=== PATIENT | female | born 1955 | race Caucasian/White ===

== ENCOUNTER 2022-10-13 14:09 | Observation (INO) ==
--- NOTE | 2022-10-13 14:27 | DR.FBACK ---
HPI Time Seen Time Seen by Provider: 10/13/22 14:22 PCP Primary Care Physician: DR BENAVIDES Complaint Chief Complaint Doctor Comments: 67 y/o female brought in for evaluation. Had sudden onset of bilateral leg numbness, while sitting. Able to get up and get back into house, slumped back against wall, having bilateral leg weakness/numbness. Feeling lower abdominal pain, radiating to legs, abdomen. Feels like fluid running down legs. Nothing makes worse. feells better pressing hand against low back. No bowel/bladder incontinence. Abdomen with bloating, distension since onset. No fever. Has been having abdominal pain recently, saw Dr Chi. Chief Complaint:: PT STATES THAT A LITTLE OVER TWO HOURS AGO SHE HAD A SUDDEN ONSET OF NUMBNESS WITH TINGLING INTO THE BILATERAL LOWER EXTREMITIES. PT STATES THAT NOW THE NUMBNESS IS PROGRESSING UP TO MIDWAY UP HER SPINE. PT APPEARS VERY ANXIOUS AT TIME OF TRIAGE COVID-19 Coronavirus risk:travel/contact w/high risk person: No Has patient experienced Coronavirus symptoms: No Reviewed Nurses Notes Review: Yes Source History Provided: Patient Mode of Arrival Mode of Arrival: Ambulatory Timing Onset of Chief Complaint: 10/13/22 PMH PMH Past Medical History: Yes Past Medical History: Anxiety, Diabetes, Dyslipidemia, Hypertension and Hypothyroidism Past Medical History Comment: TIA, INSOMNIA Past Surgical History: Yes Surgical History: Appendectomy, , Cholecystectomy and Ortho Surgery Past Surgical History Comment: L5-S1 SURGERY, BLADDER SLING, XYPHOID PROCESS REMOVED Family History History of Family Medical Conditions: Yes Family Medical History: Diabetes Mellitus and Coronary Artery Disease Social History Does patient currently use any type of tobacco product: Yes Have you used tobacco products in the last 12 months: Yes Type of Tobacco Use: Cigarettes Does any household member use tobacco: No Alcohol Use: None Do you use any recreational Drugs:: No Lives With: Alone Lives Where: Home Travel Risk Coronavirus risk:travel/contact w/high risk person: No Has patient experienced Coronavirus symptoms: No Infectious screening In the last 2 months have you had wt loss of >10#?: NO Have you had fever, night sweats or hemotysis?: No Have you traveled outside the country in the last 6 months?: No Isolation: Standard ROS Review of Systems Constitutional: Weakness Eyes: No Symptoms Reported ENTM: No Symptoms Reported Respiratoy: No Symptoms Reported Cardiovascular: No Symptoms Reported Gastrointestinal/Abdominal: Abdominal Pain Genitourinary: No Symptoms Reported Neurological: Paresthesia and Weakness Musculoskeletal: Back Pain Integumentary: No Symptoms Reported Hematologic/Lymphatic: No Symptoms Reported All Other Systems: Reviewed and Negative PE Vitals Vital Signs: Temp Pulse Resp BP Pulse Ox O2 Del Method 10/13/22 19:30 141/70 10/13/22 19:30 141/70 10/13/22 19:25 82 L 10/13/22 19:09 55 L 82 L 10/13/22 19:00 128/68 10/13/22 18:55 84 93 L 10/13/22 18:46 90 89 L 10/13/22 18:31 88 96 10/13/22 18:31 160/75 10/13/22 18:30 90 96 10/13/22 18:15 80 92 L 10/13/22 17:22 20 10/13/22 18:00 82 90 L 10/13/22 18:00 122/82 10/13/22 17:45 82 91 L 10/13/22 17:30 80 95 10/13/22 17:30 136/68 10/13/22 17:15 87 93 L 10/13/22 17:00 80 93 L 10/13/22 17:00 131/64 10/13/22 16:45 86 92 L 10/13/22 16:30 83 93 L 10/13/22 16:30 141/67 10/13/22 16:15 85 94 L 10/13/22 16:00 85 95 10/13/22 16:00 147/72 10/13/22 15:48 89 94 L 10/13/22 15:48 155/75 10/13/22 15:47 90 92 L 10/13/22 16:52 20 10/13/22 15:35 20 10/13/22 15:15 85 91 L 10/13/22 15:09 87 90 L 10/13/22 15:09 181/74 10/13/22 15:00 83 95 10/13/22 15:05 18 10/13/22 14:44 92 H 97 10/13/22 14:44 141/83 10/13/22 14:42 91 H 95 10/13/22 14:19 98.0 F 97 H 24 181/88 96 Room Air General General Appearance: Alert, Anxious and In Distress Eyes Eye exam: PERRL and EOMI ENT ENT Exam: Mucous Membranes Moist Respiratory Respiratory Exam: Normal Lung Sounds Bilat; negative Accessory Muscle Use or Respiratory Distress Cardiovascular Cardiovascular Exam: Regular Rate, Normal Rhythm and Normal Heart Sounds Abdominal Exam Abdominal Exam: Soft and Distention; negative Tenderness Extremities Extremities Exam: negative Edema or Other (decreased ability to raise either leg, no downward heel pressure with raising opposite leg. ) Neurological Neurological Exam: Alert, Oriented X3, CN II-XII Intact and Other (bilateral weakness of lower exts, but able to move with her hand on her back.) Skin Skin Exam: Warm and Dry COURSE Treatment Treatment: 67 y/o female, sudden onset of bilateral leg numbness/weakness. W/u initiated. + good distal pulses of bilateral feet. Not c/w acute CVA. Doubt major circulatory problem. Pt givne IV ativan, as she is very anxious, followed by IV analgesia. Brief help with IV dilaudid, 1 mg, repeat dose given. Labs overall acceptable. CTA of the abd/pelvis done, no obvious acute issues. Pt does appear to have lumbar disc disease on CT, with several bulging discs, no obvious cord compromise. Pt able to move her legs better, legs too weak to stand. Pt given IVsteroids. Will reommend observation admission, as pt cannot be cared for at home at this time. May need MRI if symptoms not improving. Discussed with covering MD, Dr Archuleta. ROR Labs Reviewed Result Diagrams: 10/14/22 05:32 10/14/22 05:32 Laboratory: WBC 11.1 X10^3/uL (3.6-10.0) H 10/13/22 14:40 RBC 5.24 X10^6/uL (3.5-5.4) 10/13/22 14:40 Hgb 14.7 g/dL (12.0-16.0) 10/13/22 14:40 Hct 43.0 % (36.0-47.0) 10/13/22 14:40 MCV 82.2 fL (80.0-100.0) 10/13/22 14:40 MCH 28.1 pg (27.0-34.0) 10/13/22 14:40 MCHC 34.1 g/dL (33.0-35.0) 10/13/22 14:40 RDW 13.3 % (11.6-16.5) 10/13/22 14:40 Plt Count 295 X10^3/uL (150.0-450.0) 10/13/22 14:40 MPV 8.9 fL (7.4-11.0) 10/13/22 14:40 Neut % (Auto) 67.0 % (42.0-75.0) 10/13/22 14:40 Lymph % (Auto) 24.0 % (21.0-51.0) 10/13/22 14:40 Emmons % (Auto) 6.9 % (0.0-13.0) 10/13/22 14:40 Eos % (Auto) 0.7 % (0.9-2.9) L 10/13/22 14:40 Baso % (Auto) 1.4 % (0.2-1.0) H 10/13/22 14:40 Neut # (Auto) 7.4 x10^3/uL (2.2-4.8) H 10/13/22 14:40 Lymph # (Auto) 2.7 X10^3/uL (1.3-2.9) 10/13/22 14:40 Emmons # (Auto) 0.8 x10^3/uL (0.3-0.8) 10/13/22 14:40 Eos # (Auto) 0.1 x10^3/uL (0.0-0.2) 10/13/22 14:40 Baso # (Auto) 0.2 X10^3/uL (0.0-0.1) H 10/13/22 14:40 Absolute Nucleated RBC 0.1 /100WBC 10/13/22 14:40 Sodium 139 mmol/L (136-145) 10/13/22 14:40 Corrected Sodium 140 mmol/L (136-145) 10/13/22 14:40 Potassium 3.4 mmol/L (3.5-5.1) L 10/13/22 14:40 Chloride 100 mmol/L (98-107) 10/13/22 14:40 Carbon Dioxide 24.5 mmol/L (21-32) 10/13/22 14:40 BUN 7 mg/dL (7-18) 10/13/22 14:40 Creatinine 0.85 mg/dL (0.55-1.02) 10/13/22 14:40 Est GFR (MDRD) Af Amer > 60 (>60) 10/13/22 14:40 Est GFR (MDRD) Non-Af > 60 (>60) 10/13/22 14:40 Glucose 134 mg/dL (65-99) H 10/13/22 14:40 Lactic Acid 2.5 mmol/L (0.4-2.0) H 10/13/22 14:40 Calcium 9.0 mg/dL (8.5-10.1) 10/13/22 14:40 Corrected Calcium TNP 10/13/22 14:40 Total Bilirubin 0.80 mg/dL (0.2-1.0) 10/13/22 14:40 AST 26 Units/L (15-37) 10/13/22 14:40 ALT 39 Units/L (12-78) 10/13/22 14:40 Alkaline Phosphatase 116 Units/L (46-116) 10/13/22 14:40 Total Protein 7.5 g/dL (6.4-8.2) 10/13/22 14:40 Albumin 3.9 g/dL (3.4-5.0) 10/13/22 14:40 Globulin 3.6 g/dL (2.5-4.5) 10/13/22 14:40 Albumin/Globulin Ratio 1.1 Ratio (1.1-2.1) 10/13/22 14:40 Lipase 86 Units/L (73-393) 10/13/22 14:40 Specimen Type Catherized urine 10/13/22 15:04 Urine Color Yellow (YELLOW) 10/13/22 15:04 Urine Appearance Clear (CLEAR) 10/13/22 15:04 Urine pH 5.0 (5.0 - 8.0) 10/13/22 15:04 Ur Specific [place] 1.020 (1.000-1.030) 10/13/22 15:04 Urine Protein Negative (NEGATIVE) 10/13/22 15:04 Urine Glucose (UA) Negative (NEGATIVE) 10/13/22 15:04 Urine Ketones 1+ (NEGATIVE) 10/13/22 15:04 Urine Blood Negative (NEGATIVE) 10/13/22 15:04 Urine Nitrite Negative (NEGATIVE) 10/13/22 15:04 Urine Bilirubin Negative (NEGATIVE) 10/13/22 15:04 Urine Urobilinogen Normal (NORMAL) 10/13/22 15:04 Ur Leukocyte Esterase Negative (NEGATIVE) 10/13/22 15:04 Opioid Opioid Risk Tool Age (Georges box if 16-45): No History of Preadolescent Sexual Abuse: No Total: 0 Total Score Risk Category: Low Risk Copyright: Bart PEREIRA predicting aberrant behaviors Discharge Plan Diagnosis Discharge Problem: Degenerative disc disease, lumbar, Bilateral leg weakness Discharge Plan Patient Disposition: 09 ADMITTED INPATIENT Condition: Stable
[2022-10-13] MEDS ORDERED: NS 500 ML IV 500 ML IV ONE ×2 (14:31→14:33)
[2022-10-13] MEDS ORDERED: ATIVAN INJ 2 MG VIAL IVP STA (14:31)
[2022-10-13] MEDS ORDERED: ATIVAN INJ 2 MG VIAL ONE (14:34)
[2022-10-13] MEDS ORDERED: DILAUDID INJ IVP ONE ×2 (14:46→16:49)
[2022-10-13] MEDS ORDERED: DILAUDID INJ ONE ×2 (14:48→16:47)
[2022-10-13 14:55] LABS: BASOPHILS # (AUTO) 0.2 X10^3/uL (0.0-0.1); BASOPHILS % (AUTO) 1.4 % (0.2-1.0); EOSINOPHILS # (AUTO) 0.1 x10^3/uL (0.0-0.2); EOSINOPHILS % (AUTO) 0.7 % (0.9-2.9); HEMOGLOBIN 14.7 g/dL (12.0-16.0); LYMPHOCYTES # (AUTO) 2.7 X10^3/uL (1.3-2.9); MEAN CORPUSCULAR HEMOGLOBIN 28.1 pg (27.0-34.0); MEAN CORPUSCULAR HGB CONC 34.1 g/dL (33.0-35.0); MEAN CORPUSCULAR VOLUME 82.2 fL (80.0-100.0); MEAN PLATELET VOLUME 8.9 fL (7.4-11.0); MONOCYTES # (AUTO) 0.8 x10^3/uL (0.3-0.8); MONOCYTES % (AUTO) 6.9 % (0.0-13.0); NEUTROPHILS # (AUTO) 7.4 x10^3/uL (2.2-4.8); PLATELET COUNT 295 X10^3/uL (150.0-450.0); RED BLOOD COUNT 5.24 X10^6/uL (3.5-5.4); RED CELL DISTRIBUTION WIDTH 13.3 % (11.6-16.5); WHITE BLOOD COUNT 11.1 X10^3/uL (3.6-10.0)
[2022-10-13 15:06] LABS: ALANINE AMINOTRANSFERASE 39 Units/L (12-78); ALBUMIN 3.9 g/dL (3.4-5.0); ALKALINE PHOSPHATASE 116 Units/L (46-116); ASPARTATE AMINO TRANSFERASE 26 Units/L (15-37); BLOOD UREA NITROGEN 7 mg/dL (7-18); CARBON DIOXIDE 24.5 mmol/L (21-32); CHLORIDE 100 mmol/L (98-107); COR NA(FOR HYPERGLY) 140 mmol/L (136-145); CREATININE 0.85 mg/dL (0.55-1.02); GLUCOSE 134 mg/dL (65-99); LIPASE 86 Units/L (73-393); POTASSIUM 3.4 mmol/L (3.5-5.1); SODIUM 139 mmol/L (136-145); TOTAL PROTEIN 7.5 g/dL (6.4-8.2); eGFR NON BLACK RACES > 60 (>60)
[2022-10-13 15:08] LABS: LACTIC ACID 2.5 mmol/L (0.4-2.0)
[2022-10-13 15:17] LABS: BILIRUBIN,URINE NEGATIVE (NEGATIVE); BLOOD/HEMOGLOBIN,URINE NEGATIVE (NEGATIVE); GLUCOSE, URINE NEGATIVE (NEGATIVE); KETONES,URINE 1+ (NEGATIVE); LEUKOCYTE ESTERASE ,URINE NEGATIVE (NEGATIVE); NITRITES,URINE NEGATIVE (NEGATIVE); PROTEIN,URINE NEGATIVE (NEGATIVE); UROBILINOGEN,URINE NORMAL (NORMAL)
[2022-10-13] MEDS ORDERED: NS 100 ML IV 100 ML ONE (15:17)
[2022-10-13] MEDS ORDERED: OMNIPAQUE 350 mg/mL 100 mL BTL 100 ML ONE (15:17)
[2022-10-13 15:25] LABS: APPEARANCE,URINE CLEAR (CLEAR); COLOR,URINE YELLOW (YELLOW)
--- NOTE | 2022-10-13 17:39 | CT ---
HISTORYsudden low back pain, abd pain, bilat leg pain. Dr wanted to look at AortaSTUDYCTA, ABDOMEN/PELVIS W WOCOMPARISONNoneTECHNIQUECT of the chest, abdomen, and pelvis performed without and with IV contrast. Evaluation of the vascular structures is severely limited due to contrast bolus timing. Dose reduction techniques including Automated Exposure Control (AEC) and adjustment of mA and kV were utilized.FINDINGSSeverely limited evaluation of the vasculature due to contrast bolus timing. No evidence of aortic aneurysm or dissection. The celiac artery, SMA, bilateral renal arteries, and ROGELIO appear patent without evidence of hemodynamically significant stenosis. The bilateral common, internal, and external iliac arteries appear patent. The bilateral common femoral and visualized portions of the bilateral superficial femoral and deep femoral arteries appear widely patent.Visualized portions of the chest demonstrate no evidence of pneumothorax or effusion. No acute airspace disease. Hypoventilatory changes. The heart appears normal in size. No evidence of pericardial disease. Prominence of the pulmonary arteries which may be seen with pulmonary hypertension. No mediastinal adenopathy. No axillary adenopathy.No acute osseous abnormality. Mild multilevel degenerative changes in the visualized spine.The liver, spleen, pancreas, bilateral adrenal glands, and bilateral kidneys demonstrate no acute process. Prior cholecystectomy. Hepatic steatosis.No evidence of bowel obstruction. The appendix is not definitively visualized. No secondary signs of appendicitis.The bladder is decompressed with Conway catheter in place. The uterus is present. No free air or fluid.IMPRESSIONSeverely limited evaluation of the vasculature without evidence of aortic aneurysm or dissection.No acute findings in the chest, abdomen, or pelvis.Electronically signed by: LIAT SMITH (Oct 13, 2022 17:37:52)
[2022-10-13] MEDS ORDERED: DECADRON INJ IV ONE (19:38)
[2022-10-13] MEDS ORDERED: ZOFRAN INJ 4 MG VIAL IVP ONE (19:39)
[2022-10-13] MEDS ORDERED: MORPHINE SULFATE INJ 4 MG IVP ONE (19:39)
[2022-10-13] MEDS ORDERED: DECADRON INJ ONE (19:50)
[2022-10-13] MEDS ORDERED: MORPHINE SULFATE INJ 4 MG ONE (19:50)
[2022-10-13] MEDS ORDERED: ZOFRAN INJ 4 MG VIAL ONE (19:50)
[2022-10-13] MEDS ORDERED: ZOFRAN INJ 4 MG VIAL IVP PRN (21:28)
[2022-10-13 21:56] VITALS: BMI 34.7
[2022-10-13] MEDS ORDERED: NORVASC TAB 2.5 MG ONE (22:03)
[2022-10-13] MEDS: MORPHINE SULFATE INJ 4 MG IVP PRN (22:07)
[2022-10-13] MEDS: SOLU-Medrol 40 MG VIAL IVP SCH (22:07)
[2022-10-13] MEDS: NORVASC TAB 2.5 MG PO SCH (22:10)
[2022-10-13] MEDS: KLONOPIN TAB 1 MG PO SCH (22:10)
[2022-10-13] MEDS: NEURONTIN CAP 100 MG PO SCH (22:10)
[2022-10-13] MEDS: DESYREL PO SCH (22:14)
[2022-10-14] MEDS: MORPHINE SULFATE INJ 4 MG IVP PRN ×4 (03:05→19:10)
[2022-10-14] MEDS: NEURONTIN CAP 100 MG PO SCH ×3 (05:24→21:02)
[2022-10-14] MEDS: SOLU-Medrol 40 MG VIAL IVP SCH (05:24)
[2022-10-14 05:57] LABS: BASOPHILS # (AUTO) 0.1 X10^3/uL (0.0-0.1); BASOPHILS % (AUTO) 0.7 % (0.2-1.0); HEMATOCRIT 42.4 % (36.0-47.0); HEMOGLOBIN 14.5 g/dL (12.0-16.0); LYMPHOCYTES # (AUTO) 0.9 X10^3/uL (1.3-2.9); LYMPHOCYTES % (AUTO) 9.4 % (21.0-51.0); MEAN CORPUSCULAR HEMOGLOBIN 28.3 pg (27.0-34.0); MEAN CORPUSCULAR HGB CONC 34.1 g/dL (33.0-35.0); MEAN CORPUSCULAR VOLUME 82.9 fL (80.0-100.0); MEAN PLATELET VOLUME 9.1 fL (7.4-11.0); MONOCYTES # (AUTO) 0 x10^3/uL (0.3-0.8); MONOCYTES % (AUTO) 0.4 % (0.0-13.0); NEUTROPHILS # (AUTO) 8.7 x10^3/uL (2.2-4.8); NEUTROPHILS % (AUTO) 89.5 % (42.0-75.0); PLATELET COUNT 307 X10^3/uL (150.0-450.0); RED BLOOD COUNT 5.11 X10^6/uL (3.5-5.4); RED CELL DISTRIBUTION WIDTH 13.5 % (11.6-16.5); WHITE BLOOD COUNT 9.7 X10^3/uL (3.6-10.0)
[2022-10-14] MEDS: NovoLIN R (or HumuLIN R) SUBCUT PRN ×3 (06:05→21:03)
[2022-10-14 06:12] LABS: ALANINE AMINOTRANSFERASE 35 Units/L (12-78); ALBUMIN 3.6 g/dL (3.4-5.0); ALKALINE PHOSPHATASE 117 Units/L (46-116); ASPARTATE AMINO TRANSFERASE 19 Units/L (15-37); BLOOD UREA NITROGEN 8 mg/dL (7-18); CALCIUM 8.7 mg/dL (8.5-10.1); CARBON DIOXIDE 25.3 mmol/L (21-32); CHLORIDE 99 mmol/L (98-107); COR NA(FOR HYPERGLY) 140 mmol/L (136-145); CREATININE 0.99 mg/dL (0.55-1.02); GLUCOSE 320 mg/dL (65-99); MAGNESIUM 1.8 mg/dL (2.0-2.9); POTASSIUM 4.4 mmol/L (3.5-5.1); SODIUM 135 mmol/L (136-145); TOTAL PROTEIN 7.4 g/dL (6.4-8.2); eGFR NON BLACK RACES 60 (>60)
[2022-10-14] MEDS ORDERED: PROVENTIL NEB TX 0.083% 2.5MG/ 3ML NEB PRN (08:21)
[2022-10-14] MEDS ORDERED: NORVASC TAB 2.5 MG ONE ×2 (08:50→20:19)
[2022-10-14] MEDS: TOPROL XL PO SCH (09:07)
[2022-10-14] MEDS: KLONOPIN TAB 1 MG PO SCH ×2 (09:07→20:31)
[2022-10-14] MEDS: NORVASC TAB 2.5 MG PO SCH ×2 (09:08→20:31)
[2022-10-14] MEDS: PROzac PO SCH (09:17)
[2022-10-14] MEDS: SYNTHROID 50 mcg TAB PO SCH (09:17)
[2022-10-14] MEDS: LIPITOR TAB 20 MG PO SCH (09:17)
[2022-10-14] MEDS ORDERED: GAMMAGARD IV SCH (09:51)
[2022-10-14] MEDS: GAMMAGARD IV SCH (11:42)
--- NOTE | 2022-10-14 14:08 | MRI ---
HISTORYCERVICAL STENOSIS VS GUILLIAN BARRE.brSTUDYCERVICAL W/O [id number]/18/2022 thoracic spine MRITECHNIQUEMultiplanar multisequence MRI of the cervical spine was obtained utilizing standard departmental protocol.[id number] show fusion of the vertebral bodies with focal kyphosis which appears fairly similar to the localizer sequence from 08/18/2021 pressing spine MRI and could be postsurgical or congenital.Cervical cord signal appears grossly normal.C2 -- C3: Shallow disc bulge and small left paracentral disc protrusion with severe left facet arthrosis with overall mild canal stenosis and [id number] left neural foraminal narrowing.C3 -- C4: Shallow disc osteophyte complex and mild right and severe left facet arthrosis with [id number] canal stenosis and the mild right and moderate to severe left neural foraminal stenosis.C4 -- C5: Mild disc height loss and trace C4 anterolisthesis with the the shallow disc osteophyte complex and moderate facet arthrosis with overall moderate canal stenosis and moderate right and [id number] left neural foraminal stenosis. Mild ventral cord flattening.C5 -- C6: Vertebral body bony fusion with loss of disc and posterior element hypertrophy with moderate canal stenosis and mild bilateral neural foraminal narrowing. The mild ventral cord flattening.C6 -- C7: Vertebral body bony fusion with loss of disc and the the the mild bilateral neural foraminal narrowing.C7 -- T1: Severe disc height loss with reactive endplate changes and shallow disc osteophyte complex with mild facet hypertrophy with mild canal narrowing and the moderate to severe bilateral neural foraminal stenosis.IMPRESSIONDegenerative changes as above with congenital or postsurgical fusion of C5-C6-C7 with associated focal kyphosis and flattening of the ventral cord.Guillan-Endeavor is typically imaged with a lumbar spine MRI with and without contrast and little can be said regarding this from this cervical spine without contrast.Electronically signed by: Blair Dobson (Oct 14, 2022 14:05:53)
[2022-10-14] MEDS ORDERED: NS 250 ML IV 250 ML IV ONE (16:56)
[2022-10-14] MEDS: MAGNESIUM SULFATE 1 GRAM/100 mL PREMIX 1 G/100 ML BAG IV PRN ×2 (18:08→21:04)
[2022-10-14] MEDS: SNACK - Diabetic Appropriate PO SCH (20:31)
[2022-10-14] MEDS: DESYREL PO SCH (20:31)
[2022-10-15] MEDS: MORPHINE SULFATE INJ 4 MG IVP PRN ×3 (02:43→23:20)
[2022-10-15] MEDS: NEURONTIN CAP 100 MG PO SCH ×3 (05:15→21:02)
[2022-10-15] MEDS: NovoLIN R (or HumuLIN R) SUBCUT PRN ×2 (05:30→20:48)
[2022-10-15 06:50] LABS: BASOPHILS # (AUTO) 0.1 X10^3/uL (0.0-0.1); BASOPHILS % (AUTO) 0.4 % (0.2-1.0); HEMATOCRIT 38.5 % (36.0-47.0); HEMOGLOBIN 12.9 g/dL (12.0-16.0); LYMPHOCYTES # (AUTO) 1.7 X10^3/uL (1.3-2.9); LYMPHOCYTES % (AUTO) 11.5 % (21.0-51.0); MEAN CORPUSCULAR HGB CONC 33.6 g/dL (33.0-35.0); MEAN CORPUSCULAR VOLUME 83.3 fL (80.0-100.0); MEAN PLATELET VOLUME 9.2 fL (7.4-11.0); MONOCYTES # (AUTO) 0.9 x10^3/uL (0.3-0.8); MONOCYTES % (AUTO) 6.3 % (0.0-13.0); NEUTROPHILS # (AUTO) 12.4 x10^3/uL (2.2-4.8); NEUTROPHILS % (AUTO) 81.8 % (42.0-75.0); PLATELET COUNT 311 X10^3/uL (150.0-450.0); RED BLOOD COUNT 4.62 X10^6/uL (3.5-5.4); RED CELL DISTRIBUTION WIDTH 13.5 % (11.6-16.5); WHITE BLOOD COUNT 15.2 X10^3/uL (3.6-10.0)
[2022-10-15 07:12] LABS: ALANINE AMINOTRANSFERASE 26 Units/L (12-78); ALBUMIN 3.1 g/dL (3.4-5.0); ALKALINE PHOSPHATASE 93 Units/L (46-116); ASPARTATE AMINO TRANSFERASE 11 Units/L (15-37); BLOOD UREA NITROGEN 14 mg/dL (7-18); CALCIUM 8.4 mg/dL (8.5-10.1); CARBON DIOXIDE 29.1 mmol/L (21-32); CHLORIDE 103 mmol/L (98-107); COR CA(FOR HYPOALB) 9.1 mg/dL (8.5-10.1); COR NA(FOR HYPERGLY) 140 mmol/L (136-145); CREATININE 0.84 mg/dL (0.55-1.02); GLUCOSE 243 mg/dL (65-99); POTASSIUM 4.1 mmol/L (3.5-5.1); SODIUM 137 mmol/L (136-145); TOTAL PROTEIN 7.2 g/dL (6.4-8.2); eGFR NON BLACK RACES > 60 (>60)
[2022-10-15] MEDS: RHINOCORT ALLERGY NASAL SPRAY ENOSTRIL SCH (09:30)
[2022-10-15] MEDS ORDERED: NORVASC TAB 2.5 MG ONE ×2 (09:40→19:55)
[2022-10-15] MEDS: MAGNESIUM SULFATE 1 GRAM/100 mL PREMIX 1 G/100 ML BAG IV PRN (09:55)
[2022-10-15] MEDS: KLONOPIN TAB 1 MG PO SCH ×2 (09:56→20:47)
[2022-10-15] MEDS: PROzac PO SCH (09:56)
[2022-10-15] MEDS: SYNTHROID 50 mcg TAB PO SCH (09:56)
[2022-10-15] MEDS: TOPROL XL PO SCH (09:56)
[2022-10-15] MEDS: LIPITOR TAB 20 MG PO SCH (09:57)
[2022-10-15] MEDS: NORVASC TAB 2.5 MG PO SCH ×2 (09:57→20:47)
[2022-10-15] MEDS: DUONEB 0.5 MG/3 MG (3 mL) NEB SCH ×2 (13:29→17:54)
[2022-10-15] MEDS: GAMMAGARD IV SCH (13:45)
[2022-10-15] MEDS: SNACK - Diabetic Appropriate PO SCH (20:15)
[2022-10-15] MEDS: DESYREL PO SCH (20:47)
[2022-10-15] MEDS ORDERED: BUTT CREAM (COMPOUND) TOP PRN (21:52)
[2022-10-15] MEDS: NYSTATIN POWDER TOP SCH (22:14)
[2022-10-16] MEDS: NEURONTIN CAP 100 MG PO SCH ×3 (05:29→22:47)
[2022-10-16] MEDS: NovoLIN R (or HumuLIN R) SUBCUT PRN (05:40)
[2022-10-16] MEDS: DUONEB 0.5 MG/3 MG (3 mL) NEB SCH ×4 (05:45→17:07)
[2022-10-16 06:23] LABS: BASOPHILS # (AUTO) 0.1 X10^3/uL (0.0-0.1); BASOPHILS % (AUTO) 0.8 % (0.2-1.0); EOSINOPHILS # (AUTO) 0.1 x10^3/uL (0.0-0.2); EOSINOPHILS % (AUTO) 0.7 % (0.9-2.9); HEMATOCRIT 36.5 % (36.0-47.0); HEMOGLOBIN 12.5 g/dL (12.0-16.0); LYMPHOCYTES % (AUTO) 30.8 % (21.0-51.0); MEAN CORPUSCULAR HEMOGLOBIN 28.6 pg (27.0-34.0); MEAN CORPUSCULAR HGB CONC 34.2 g/dL (33.0-35.0); MEAN CORPUSCULAR VOLUME 83.6 fL (80.0-100.0); MEAN PLATELET VOLUME 9.4 fL (7.4-11.0); MONOCYTES % (AUTO) 9.8 % (0.0-13.0); NEUTROPHILS # (AUTO) 5.6 x10^3/uL (2.2-4.8); NEUTROPHILS % (AUTO) 57.9 % (42.0-75.0); PLATELET COUNT 240 X10^3/uL (150.0-450.0); RED BLOOD COUNT 4.37 X10^6/uL (3.5-5.4); RED CELL DISTRIBUTION WIDTH 13.8 % (11.6-16.5); WHITE BLOOD COUNT 9.7 X10^3/uL (3.6-10.0)
[2022-10-16 06:48] LABS: ALANINE AMINOTRANSFERASE 22 Units/L (12-78); ALBUMIN 2.7 g/dL (3.4-5.0); ALKALINE PHOSPHATASE 85 Units/L (46-116); ASPARTATE AMINO TRANSFERASE 13 Units/L (15-37); BLOOD UREA NITROGEN 16 mg/dL (7-18); CALCIUM 7.9 mg/dL (8.5-10.1); CARBON DIOXIDE 30.4 mmol/L (21-32); CHLORIDE 104 mmol/L (98-107); COR CA(FOR HYPOALB) 8.9 mg/dL (8.5-10.1); COR NA(FOR HYPERGLY) 142 mmol/L (136-145); CREATININE 0.88 mg/dL (0.55-1.02); GLUCOSE 207 mg/dL (65-99); POTASSIUM 3.5 mmol/L (3.5-5.1); SODIUM 139 mmol/L (136-145); TOTAL PROTEIN 7.1 g/dL (6.4-8.2); eGFR NON BLACK RACES > 60 (>60)
[2022-10-16] MEDS ORDERED: NORVASC TAB 2.5 MG ONE ×2 (08:45→20:29)
[2022-10-16] MEDS: MAGNESIUM SULFATE 1 GRAM/100 mL PREMIX 1 G/100 ML BAG IV PRN ×2 (08:53→17:50)
[2022-10-16] MEDS: GAMMAGARD IV SCH (09:05)
[2022-10-16] MEDS: KLONOPIN TAB 1 MG PO SCH ×2 (09:05→20:53)
[2022-10-16] MEDS: LIPITOR TAB 20 MG PO SCH (09:06)
[2022-10-16] MEDS: NORVASC TAB 2.5 MG PO SCH ×2 (09:06→20:53)
[2022-10-16] MEDS: SYNTHROID 50 mcg TAB PO SCH (09:06)
[2022-10-16] MEDS: PROzac PO SCH (09:06)
[2022-10-16] MEDS: TOPROL XL PO SCH (09:06)
[2022-10-16] MEDS: NYSTATIN POWDER TOP SCH ×2 (09:07→20:54)
[2022-10-16] MEDS: RHINOCORT ALLERGY NASAL SPRAY ENOSTRIL SCH (09:07)
[2022-10-16] MEDS: MORPHINE SULFATE INJ 4 MG IVP PRN ×2 (11:45→20:55)
[2022-10-16] MEDS: SNACK - Diabetic Appropriate PO SCH (20:49)
[2022-10-16] MEDS: DESYREL PO SCH (20:52)
[2022-10-17] MEDS: DUONEB 0.5 MG/3 MG (3 mL) NEB SCH ×5 (00:15→17:08)
[2022-10-17] MEDS: NEURONTIN CAP 100 MG PO SCH ×3 (05:44→21:46)
[2022-10-17 06:37] LABS: BASOPHILS % (AUTO) 0.5 % (0.2-1.0); EOSINOPHILS % (AUTO) 0.5 % (0.9-2.9); HEMATOCRIT 38.4 % (36.0-47.0); HEMOGLOBIN 13.1 g/dL (12.0-16.0); LYMPHOCYTES # (AUTO) 2.1 X10^3/uL (1.3-2.9); LYMPHOCYTES % (AUTO) 27.4 % (21.0-51.0); MEAN CORPUSCULAR HEMOGLOBIN 28.2 pg (27.0-34.0); MEAN CORPUSCULAR HGB CONC 34.1 g/dL (33.0-35.0); MEAN CORPUSCULAR VOLUME 82.7 fL (80.0-100.0); MONOCYTES # (AUTO) 0.8 x10^3/uL (0.3-0.8); MONOCYTES % (AUTO) 10.6 % (0.0-13.0); NEUTROPHILS # (AUTO) 4.6 x10^3/uL (2.2-4.8); PLATELET COUNT 232 X10^3/uL (150.0-450.0); RED BLOOD COUNT 4.64 X10^6/uL (3.5-5.4); RED CELL DISTRIBUTION WIDTH 13.9 % (11.6-16.5); WHITE BLOOD COUNT 7.5 X10^3/uL (3.6-10.0)
[2022-10-17 06:51] LABS: ALANINE AMINOTRANSFERASE 23 Units/L (12-78); ALBUMIN 2.8 g/dL (3.4-5.0); ALKALINE PHOSPHATASE 90 Units/L (46-116); ASPARTATE AMINO TRANSFERASE 14 Units/L (15-37); BLOOD UREA NITROGEN 12 mg/dL (7-18); CALCIUM 8.2 mg/dL (8.5-10.1); CARBON DIOXIDE 29.1 mmol/L (21-32); CHLORIDE 101 mmol/L (98-107); COR CA(FOR HYPOALB) 9.2 mg/dL (8.5-10.1); COR NA(FOR HYPERGLY) 137 mmol/L (136-145); CREATININE 0.91 mg/dL (0.55-1.02); GLUCOSE 141 mg/dL (65-99); SODIUM 136 mmol/L (136-145); TOTAL PROTEIN 7.9 g/dL (6.4-8.2); eGFR NON BLACK RACES > 60 (>60)
[2022-10-17] MEDS ORDERED: NORVASC TAB 2.5 MG ONE ×2 (08:00→20:01)
[2022-10-17] MEDS: MAGNESIUM SULFATE 1 GRAM/100 mL PREMIX 1 G/100 ML BAG IV PRN ×2 (08:48→11:04)
[2022-10-17] MEDS: KLONOPIN TAB 1 MG PO SCH ×2 (08:49→20:36)
[2022-10-17] MEDS: SYNTHROID 50 mcg TAB PO SCH (08:49)
[2022-10-17] MEDS: NORVASC TAB 2.5 MG PO SCH ×2 (08:50→20:36)
[2022-10-17] MEDS: LIPITOR TAB 20 MG PO SCH (08:50)
[2022-10-17] MEDS: PROzac PO SCH (08:50)
[2022-10-17] MEDS: TOPROL XL PO SCH (08:50)
[2022-10-17] MEDS: NYSTATIN POWDER TOP SCH ×2 (08:50→21:42)
[2022-10-17] MEDS: RHINOCORT ALLERGY NASAL SPRAY ENOSTRIL SCH (08:51)
[2022-10-17] MEDS: GAMMAGARD IV SCH (10:13)
[2022-10-17] MEDS: MORPHINE SULFATE INJ 4 MG IVP PRN ×2 (11:36→20:36)
[2022-10-17] MEDS: NovoLIN R (or HumuLIN R) SUBCUT PRN (17:30)
[2022-10-17] MEDS: DESYREL PO SCH (20:35)
[2022-10-17] MEDS: SNACK - Diabetic Appropriate PO SCH (20:37)
[2022-10-18] MEDS: DUONEB 0.5 MG/3 MG (3 mL) NEB SCH ×5 (00:10→17:52)
[2022-10-18] MEDS: MAGNESIUM SULFATE 1 GRAM/100 mL PREMIX 1 G/100 ML BAG IV PRN (05:32)
[2022-10-18] MEDS: NEURONTIN CAP 100 MG PO SCH ×3 (05:32→21:40)
[2022-10-18] MEDS: NovoLIN R (or HumuLIN R) SUBCUT PRN ×3 (06:28→16:48)
[2022-10-18 06:35] LABS: ALANINE AMINOTRANSFERASE 22 Units/L (12-78); ALBUMIN 2.6 g/dL (3.4-5.0); ALKALINE PHOSPHATASE 86 Units/L (46-116); ASPARTATE AMINO TRANSFERASE 13 Units/L (15-37); BLOOD UREA NITROGEN 16 mg/dL (7-18); CALCIUM 8.2 mg/dL (8.5-10.1); CARBON DIOXIDE 29.6 mmol/L (21-32); CHLORIDE 99 mmol/L (98-107); COR CA(FOR HYPOALB) 9.3 mg/dL (8.5-10.1); COR NA(FOR HYPERGLY) 137 mmol/L (136-145); CREATININE 0.87 mg/dL (0.55-1.02); GLUCOSE 150 mg/dL (65-99); POTASSIUM 3.8 mmol/L (3.5-5.1); SODIUM 136 mmol/L (136-145); TOTAL PROTEIN 8.1 g/dL (6.4-8.2); eGFR NON BLACK RACES > 60 (>60)
[2022-10-18 06:39] LABS: BASOPHILS # (AUTO) 0.1 X10^3/uL (0.0-0.1); BASOPHILS % (AUTO) 0.8 % (0.2-1.0); EOSINOPHILS # (AUTO) 0.1 x10^3/uL (0.0-0.2); EOSINOPHILS % (AUTO) 0.7 % (0.9-2.9); HEMOGLOBIN 12.6 g/dL (12.0-16.0); LYMPHOCYTES # (AUTO) 1.8 X10^3/uL (1.3-2.9); LYMPHOCYTES % (AUTO) 23.6 % (21.0-51.0); MEAN CORPUSCULAR VOLUME 82.5 fL (80.0-100.0); MEAN PLATELET VOLUME 9.1 fL (7.4-11.0); MONOCYTES # (AUTO) 0.8 x10^3/uL (0.3-0.8); MONOCYTES % (AUTO) 11.2 % (0.0-13.0); NEUTROPHILS # (AUTO) 4.8 x10^3/uL (2.2-4.8); NEUTROPHILS % (AUTO) 63.7 % (42.0-75.0); PLATELET COUNT 234 X10^3/uL (150.0-450.0); RED BLOOD COUNT 4.49 X10^6/uL (3.5-5.4); RED CELL DISTRIBUTION WIDTH 13.7 % (11.6-16.5); WHITE BLOOD COUNT 7.6 X10^3/uL (3.6-10.0)
[2022-10-18] MEDS ORDERED: KLOR-CON PO PRN (07:10)
[2022-10-18] MEDS ORDERED: K-RIDER 10 MEQ/NS 100 ML 10 MEQ/100 ML BAG IV PRN (07:10)
[2022-10-18] MEDS ORDERED: MICRO K EXTEN CAP 10 MEQ PO PRN (07:10)
[2022-10-18] MEDS ORDERED: POTASSIUM CHLORIDE LIQ PO PRN (07:10)
[2022-10-18] MEDS ORDERED: POTASSIUM CHL 60 MEQ/NS 0.45% 500 ML IV PRN (07:10)
[2022-10-18] MEDS ORDERED: K-DUR TAB 20 MEQ PO PRN (07:10)
[2022-10-18] MEDS ORDERED: POTASSIUM CHL 40 MEQ/NS 0.45% 500 ML IV PRN (07:10)
[2022-10-18] MEDS ORDERED: NORVASC TAB 2.5 MG ONE ×2 (08:29→20:10)
[2022-10-18] MEDS: KLONOPIN TAB 1 MG PO SCH ×2 (08:44→21:44)
[2022-10-18] MEDS: NORVASC TAB 2.5 MG PO SCH ×2 (08:44→21:43)
[2022-10-18] MEDS: PROzac PO SCH (08:44)
[2022-10-18] MEDS: LIPITOR TAB 20 MG PO SCH (08:45)
[2022-10-18] MEDS: NYSTATIN POWDER TOP SCH ×2 (08:45→21:44)
[2022-10-18] MEDS: SYNTHROID 50 mcg TAB PO SCH (08:45)
[2022-10-18] MEDS: TOPROL XL PO SCH (08:45)
[2022-10-18] MEDS: RHINOCORT ALLERGY NASAL SPRAY ENOSTRIL SCH (08:46)
[2022-10-18] MEDS: MORPHINE SULFATE INJ 4 MG IVP PRN ×2 (11:27→17:42)
[2022-10-18] MEDS: SNACK - Diabetic Appropriate PO SCH (21:00)
[2022-10-18] MEDS: COLACE CAP 100 MG PO SCH (21:39)
[2022-10-18] MEDS: DESYREL PO SCH (21:44)
[2022-10-18] MEDS: MILK OF MAGNESIA PO SCH (21:44)
[2022-10-19] MEDS: DUONEB 0.5 MG/3 MG (3 mL) NEB SCH ×5 (00:28→18:29)
[2022-10-19] MEDS: NEURONTIN CAP 100 MG PO SCH ×3 (06:07→21:45)
[2022-10-19 06:25] LABS: BASOPHILS # (AUTO) 0.1 X10^3/uL (0.0-0.1); BASOPHILS % (AUTO) 0.9 % (0.2-1.0); EOSINOPHILS # (AUTO) 0.1 x10^3/uL (0.0-0.2); EOSINOPHILS % (AUTO) 0.9 % (0.9-2.9); HEMATOCRIT 35.4 % (36.0-47.0); HEMOGLOBIN 12.3 g/dL (12.0-16.0); LYMPHOCYTES # (AUTO) 1.8 X10^3/uL (1.3-2.9); MEAN CORPUSCULAR HEMOGLOBIN 28.6 pg (27.0-34.0); MEAN CORPUSCULAR HGB CONC 34.8 g/dL (33.0-35.0); MEAN CORPUSCULAR VOLUME 82.2 fL (80.0-100.0); MEAN PLATELET VOLUME 9.1 fL (7.4-11.0); MONOCYTES # (AUTO) 0.8 x10^3/uL (0.3-0.8); NEUTROPHILS # (AUTO) 4.5 x10^3/uL (2.2-4.8); NEUTROPHILS % (AUTO) 62.2 % (42.0-75.0); PLATELET COUNT 231 X10^3/uL (150.0-450.0); RED BLOOD COUNT 4.31 X10^6/uL (3.5-5.4); RED CELL DISTRIBUTION WIDTH 13.3 % (11.6-16.5); WHITE BLOOD COUNT 7.3 X10^3/uL (3.6-10.0)
[2022-10-19 06:38] LABS: ALANINE AMINOTRANSFERASE 21 Units/L (12-78); ALBUMIN 2.5 g/dL (3.4-5.0); ALKALINE PHOSPHATASE 80 Units/L (46-116); ASPARTATE AMINO TRANSFERASE 14 Units/L (15-37); BLOOD UREA NITROGEN 18 mg/dL (7-18); CALCIUM 8.3 mg/dL (8.5-10.1); CARBON DIOXIDE 30.1 mmol/L (21-32); CHLORIDE 100 mmol/L (98-107); COR CA(FOR HYPOALB) 9.5 mg/dL (8.5-10.1); COR NA(FOR HYPERGLY) 139 mmol/L (136-145); CREATININE 0.86 mg/dL (0.55-1.02); GLUCOSE 268 mg/dL (65-99); SODIUM 135 mmol/L (136-145); TOTAL PROTEIN 8.3 g/dL (6.4-8.2); eGFR NON BLACK RACES > 60 (>60)
[2022-10-19] MEDS: NovoLIN R (or HumuLIN R) SUBCUT PRN (06:43)
[2022-10-19] MEDS ORDERED: NORVASC TAB 2.5 MG ONE ×2 (08:40→21:19)
[2022-10-19] MEDS: MORPHINE SULFATE INJ 4 MG IVP PRN ×3 (08:59→20:27)
[2022-10-19] MEDS: SYNTHROID 50 mcg TAB PO SCH (09:00)
[2022-10-19] MEDS: TOPROL XL PO SCH (09:00)
[2022-10-19] MEDS: PROzac PO SCH (09:00)
[2022-10-19] MEDS: KLONOPIN TAB 1 MG PO SCH ×2 (09:00→21:45)
[2022-10-19] MEDS: MILK OF MAGNESIA PO SCH ×2 (09:00→21:45)
[2022-10-19] MEDS: LIPITOR TAB 20 MG PO SCH (09:00)
[2022-10-19] MEDS: NYSTATIN POWDER TOP SCH ×2 (09:01→21:49)
[2022-10-19] MEDS: RHINOCORT ALLERGY NASAL SPRAY ENOSTRIL SCH (09:02)
[2022-10-19] MEDS: NORVASC TAB 2.5 MG PO SCH ×2 (09:06→21:46)
[2022-10-19] MEDS: LOVENOX INJ 40 MG SYR SC SCH (09:57)
[2022-10-19] MEDS: DESYREL PO SCH (21:45)
[2022-10-19] MEDS: COLACE CAP 100 MG PO SCH (21:47)
[2022-10-19] MEDS: SNACK - Diabetic Appropriate PO SCH (21:49)
[2022-10-20] MEDS: DUONEB 0.5 MG/3 MG (3 mL) NEB SCH ×5 (00:33→18:34)
[2022-10-20] MEDS: NEURONTIN CAP 100 MG PO SCH ×3 (06:29→22:43)
[2022-10-20 06:33] LABS: BASOPHILS # (AUTO) 0.1 X10^3/uL (0.0-0.1); BASOPHILS % (AUTO) 0.8 % (0.2-1.0); EOSINOPHILS # (AUTO) 0.1 x10^3/uL (0.0-0.2); EOSINOPHILS % (AUTO) 1.5 % (0.9-2.9); HEMATOCRIT 35.4 % (36.0-47.0); HEMOGLOBIN 12.4 g/dL (12.0-16.0); LYMPHOCYTES # (AUTO) 2.2 X10^3/uL (1.3-2.9); LYMPHOCYTES % (AUTO) 26.7 % (21.0-51.0); MEAN CORPUSCULAR HEMOGLOBIN 28.7 pg (27.0-34.0); MEAN CORPUSCULAR HGB CONC 35.1 g/dL (33.0-35.0); MEAN CORPUSCULAR VOLUME 81.7 fL (80.0-100.0); MEAN PLATELET VOLUME 9.1 fL (7.4-11.0); MONOCYTES # (AUTO) 0.9 x10^3/uL (0.3-0.8); MONOCYTES % (AUTO) 11.3 % (0.0-13.0); NEUTROPHILS % (AUTO) 59.7 % (42.0-75.0); PLATELET COUNT 260 X10^3/uL (150.0-450.0); RED BLOOD COUNT 4.33 X10^6/uL (3.5-5.4); RED CELL DISTRIBUTION WIDTH 13.6 % (11.6-16.5); WHITE BLOOD COUNT 8.4 X10^3/uL (3.6-10.0)
[2022-10-20 07:10] LABS: ALANINE AMINOTRANSFERASE 21 Units/L (12-78); ALBUMIN 2.6 g/dL (3.4-5.0); ALKALINE PHOSPHATASE 83 Units/L (46-116); ASPARTATE AMINO TRANSFERASE 21 Units/L (15-37); BLOOD UREA NITROGEN 18 mg/dL (7-18); CALCIUM 8.6 mg/dL (8.5-10.1); CARBON DIOXIDE 28.7 mmol/L (21-32); CHLORIDE 99 mmol/L (98-107); COR CA(FOR HYPOALB) 9.7 mg/dL (8.5-10.1); COR NA(FOR HYPERGLY) 136 mmol/L (136-145); CREATININE 0.83 mg/dL (0.55-1.02); GLUCOSE 165 mg/dL (65-99); POTASSIUM 4.5 mmol/L (3.5-5.1); SODIUM 134 mmol/L (136-145); TOTAL PROTEIN 8.2 g/dL (6.4-8.2); eGFR NON BLACK RACES > 60 (>60)
[2022-10-20] MEDS ORDERED: NORVASC TAB 2.5 MG ONE ×2 (08:18→21:47)
[2022-10-20] MEDS: LINZESS PO SCH (08:55)
[2022-10-20] MEDS: NORVASC TAB 2.5 MG PO SCH ×2 (08:55→22:46)
[2022-10-20] MEDS: LOVENOX INJ 40 MG SYR SC SCH (08:55)
[2022-10-20] MEDS: TOPROL XL PO SCH (08:55)
[2022-10-20] MEDS: KLONOPIN TAB 1 MG PO SCH ×2 (08:55→22:45)
[2022-10-20] MEDS: MILK OF MAGNESIA PO SCH ×2 (08:55→22:51)
[2022-10-20] MEDS: RHINOCORT ALLERGY NASAL SPRAY ENOSTRIL SCH (08:57)
[2022-10-20] MEDS: NYSTATIN POWDER TOP SCH ×2 (08:57→22:50)
[2022-10-20] MEDS: PROzac PO SCH (08:59)
[2022-10-20] MEDS: SYNTHROID 50 mcg TAB PO SCH (08:59)
[2022-10-20] MEDS: LIPITOR TAB 20 MG PO SCH (08:59)
[2022-10-20] MEDS: NICOTINE PATCH TD SCH (11:30)
[2022-10-20] MEDS: NovoLIN R (or HumuLIN R) SUBCUT PRN ×2 (11:56→22:46)
[2022-10-20] MEDS: MORPHINE SULFATE INJ 4 MG IVP PRN ×2 (13:08→22:47)
[2022-10-20] MEDS: SNACK - Diabetic Appropriate PO SCH (21:00)
[2022-10-20] MEDS: DESYREL PO SCH (22:43)
[2022-10-20] MEDS: COLACE CAP 100 MG PO SCH (22:45)
[2022-10-21] MEDS: DUONEB 0.5 MG/3 MG (3 mL) NEB SCH ×4 (00:15→16:10)
[2022-10-21 05:45] LABS: BASOPHILS # (AUTO) 0.1 X10^3/uL (0.0-0.1); BASOPHILS % (AUTO) 1.1 % (0.2-1.0); EOSINOPHILS # (AUTO) 0.1 x10^3/uL (0.0-0.2); EOSINOPHILS % (AUTO) 1.5 % (0.9-2.9); HEMATOCRIT 34.7 % (36.0-47.0); HEMOGLOBIN 12.3 g/dL (12.0-16.0); LYMPHOCYTES # (AUTO) 2.2 X10^3/uL (1.3-2.9); LYMPHOCYTES % (AUTO) 28.5 % (21.0-51.0); MEAN CORPUSCULAR HEMOGLOBIN 28.7 pg (27.0-34.0); MEAN CORPUSCULAR HGB CONC 35.5 g/dL (33.0-35.0); MEAN CORPUSCULAR VOLUME 80.6 fL (80.0-100.0); MEAN PLATELET VOLUME 9.3 fL (7.4-11.0); MONOCYTES # (AUTO) 0.8 x10^3/uL (0.3-0.8); MONOCYTES % (AUTO) 10.5 % (0.0-13.0); NEUTROPHILS # (AUTO) 4.6 x10^3/uL (2.2-4.8); NEUTROPHILS % (AUTO) 58.4 % (42.0-75.0); PLATELET COUNT 308 X10^3/uL (150.0-450.0); RED CELL DISTRIBUTION WIDTH 13.6 % (11.6-16.5); WHITE BLOOD COUNT 7.8 X10^3/uL (3.6-10.0)
[2022-10-21 06:00] LABS: ALANINE AMINOTRANSFERASE 21 Units/L (12-78); ALBUMIN 2.7 g/dL (3.4-5.0); ALKALINE PHOSPHATASE 86 Units/L (46-116); ASPARTATE AMINO TRANSFERASE 14 Units/L (15-37); BLOOD UREA NITROGEN 18 mg/dL (7-18); CALCIUM 8.5 mg/dL (8.5-10.1); CARBON DIOXIDE 29.7 mmol/L (21-32); CHLORIDE 99 mmol/L (98-107); COR CA(FOR HYPOALB) 9.5 mg/dL (8.5-10.1); COR NA(FOR HYPERGLY) 138 mmol/L (136-145); CREATININE 0.79 mg/dL (0.55-1.02); GLUCOSE 190 mg/dL (65-99); SODIUM 136 mmol/L (136-145); eGFR NON BLACK RACES > 60 (>60)
[2022-10-21] MEDS: NovoLIN R (or HumuLIN R) SUBCUT PRN ×2 (06:31→12:41)
[2022-10-21] MEDS: NEURONTIN CAP 100 MG PO SCH ×3 (06:31→21:33)
[2022-10-21] MEDS ORDERED: NORVASC TAB 2.5 MG ONE ×2 (08:06→21:04)
[2022-10-21] MEDS: KLONOPIN TAB 1 MG PO SCH ×2 (08:09→21:35)
[2022-10-21] MEDS: PROzac PO SCH (08:09)
[2022-10-21] MEDS: TOPROL XL PO SCH (08:09)
[2022-10-21] MEDS: NORVASC TAB 2.5 MG PO SCH ×2 (08:11→21:32)
[2022-10-21] MEDS: LIPITOR TAB 20 MG PO SCH (08:11)
[2022-10-21] MEDS: SYNTHROID 50 mcg TAB PO SCH (08:12)
[2022-10-21] MEDS: LOVENOX INJ 40 MG SYR SC SCH (08:12)
[2022-10-21] MEDS: MORPHINE SULFATE INJ 4 MG IVP PRN (08:22)
[2022-10-21] MEDS: LINZESS PO SCH (08:34)
[2022-10-21] MEDS: MILK OF MAGNESIA PO SCH ×2 (08:35→22:00)
[2022-10-21] MEDS ORDERED: VOLTAREN 1 % GEL MULTI DOSE TUBE TOP PRN (09:15)
[2022-10-21] MEDS: NICOTINE PATCH TD SCH (09:45)
[2022-10-21] MEDS: GLUCOPHAGE XR 24-HR PO SCH ×2 (09:45→21:34)
[2022-10-21] MEDS: ACTOS PO SCH (09:45)
[2022-10-21] MEDS: RHINOCORT ALLERGY NASAL SPRAY ENOSTRIL SCH (09:46)
[2022-10-21] MEDS: NYSTATIN POWDER TOP SCH ×2 (09:47→21:00)
[2022-10-21] MEDS ORDERED: TORADOL 15 MG VIAL ONE (17:46)
[2022-10-21] MEDS ORDERED: TORADOL 15 MG VIAL IM ONE (18:01)
[2022-10-21] MEDS ORDERED: TORADOL 15 MG VIAL IVP ONE (18:14)
[2022-10-21] MEDS: SNACK - Diabetic Appropriate PO SCH (20:00)
[2022-10-21] MEDS: COLACE CAP 100 MG PO SCH (21:33)
[2022-10-21] MEDS: ULTRAM PO PRN (21:34)
[2022-10-21] MEDS: DESYREL PO SCH (21:34)
[2022-10-22] MEDS: DUONEB 0.5 MG/3 MG (3 mL) NEB SCH ×3 (00:30→12:58)
[2022-10-22] MEDS: NEURONTIN CAP 100 MG PO SCH (06:09)
[2022-10-22] MEDS: NovoLIN R (or HumuLIN R) SUBCUT PRN (07:02)
[2022-10-22] MEDS: ULTRAM PO PRN (07:14)
[2022-10-22] MEDS ORDERED: NORVASC TAB 2.5 MG ONE (08:23)
[2022-10-22 08:27] VITALS: BP 97/48; PULSE 73; TEMP 97.8; O2SAT 95
[2022-10-22] MEDS: LOVENOX INJ 40 MG SYR SC SCH (08:59)
[2022-10-22] MEDS: ACTOS PO SCH (08:59)
[2022-10-22] MEDS: SYNTHROID 50 mcg TAB PO SCH (09:01)
[2022-10-22] MEDS: MILK OF MAGNESIA PO SCH (09:01)
[2022-10-22] MEDS: LINZESS PO SCH (09:02)
[2022-10-22] MEDS: PROzac PO SCH (09:02)
[2022-10-22] MEDS: KLONOPIN TAB 1 MG PO SCH (09:03)
[2022-10-22] MEDS: LIPITOR TAB 20 MG PO SCH (09:03)
[2022-10-22] MEDS: GLUCOPHAGE XR 24-HR PO SCH (09:03)
[2022-10-22] MEDS: TOPROL XL PO SCH (09:03)
[2022-10-22] MEDS: NORVASC TAB 2.5 MG PO SCH (09:03)
[2022-10-22] MEDS: NYSTATIN POWDER TOP SCH (09:04)
[2022-10-22] MEDS: NICOTINE PATCH TD SCH (09:04)
[2022-10-22] MEDS: RHINOCORT ALLERGY NASAL SPRAY ENOSTRIL SCH (09:04)
[2022-10-22] MEDS ORDERED: LYRICA CAP 75 mg PO SCH (21:00)
[2022-10-23] MEDS ORDERED: LINZESS PO SCH (09:00)
== END 2022-10-22 13:40 ==
LOC: MED/SURG 14:09 → ER 14:09 → MED/SURG 21:15
PROVIDERS: ADMIT Obstetrics & Gynecology Obstetrics; ATTEND Obstetrics & Gynecology Obstetrics